=== PATIENT | male | born 1995 | race Caucasian/White ===

== ENCOUNTER 2016-08-17 16:45 | Emergency (ER) | payer BC ==
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
--- NOTE | 2016-08-17 20:11 | RAD ---
LEFT ELBOW FOUR VIEWS 08/17/16 No fracture, dislocation, or definite joint effusion was seen. The anterior fat pad is a little prom inent but no posterior fat pad was seen. As best as I can tell, the radial head appears intact. IMPRESSION: No acute findings. POS: HOME
== END 2016-08-17 17:27 | disposition home or self-care (01) ==
LOC: BURERS 16:45
DX: S50.02XA Contusion of left elbow, initial encounter (principal); V47.6XXA Car passenger injured in collision with fixed or stationary object in traffic accident, initial encounter; Y92.410 Unspecified street and highway as the place of occurrence of the external cause
CPT/HCPCS: 99284